=== PATIENT | female | born 1945 | race Caucasian/White ===

== ENCOUNTER → 2018-02-16 | Outpatient (CLI) | payer OTHER, MEDICARE | LOC: BHFA 14:45 | PROVIDERS: ATTEND Internal Medicine Cardiovascular Disease | DX: R06.02 Shortness of breath (principal); I25.10 Atherosclerotic heart disease of native coronary artery without angina pectoris; I10 Essential (primary) hypertension ==

== ENCOUNTER → 2018-06-20 | Outpatient (CLI) | payer OTHER, MEDICARE | LOC: BHFA 13:30 | PROVIDERS: ATTEND Internal Medicine Cardiovascular Disease | DX: R07.9 Chest pain, unspecified (principal); I25.10 Atherosclerotic heart disease of native coronary artery without angina pectoris; R06.02 Shortness of breath | CPT/HCPCS: 78452; 93017; A9500 ==

== ENCOUNTER 2018-07-23 10:28 | Emergency (ER) | payer OTHER, MEDICARE | END 2018-07-23 12:22 | disposition home or self-care (01) ==

== ENCOUNTER → 2018-09-22 | Outpatient (CLI) | payer OTHER, MEDICARE | LOC: FIMAGING 09:59 | PROVIDERS: ATTEND Internal Medicine | DX: Z12.31 Encounter for screening mammogram for malignant neoplasm of breast (principal) ==